=== PATIENT | male | born 1975 | race Caucasian/White ===

== ENCOUNTER 2025-01-16 11:48 | Emergency (ER) | payer OTHER ==
[~2025-01-16] VITALS: Ht 180.3 cm; Wt 95.2 kg
[2025-01-16 14:13] LABS: BASOPHILS ABSOLUTE AUTO 0.03 K/mm3 (0.00-0.23); BASOPHILS PERCENT AUTO 1 % (0-2); EOSINOPHILS ABSOLUTE AUTO 0.15 K/mm3 (0.00-0.68); EOSINOPHILS PERCENT AUTO 4 % (0-6); Hematocrit 46.6 % (37.0-53.0); Hemoglobin 16.8 g/dL (13.5-17.5); IMMATURE GRAN ABSOLUTE AUTO 0.01 K/mm3 (0.00-0.10); IMMATURE GRAN PERCENT AUTO 0 % (0-1); LYMPHOCYTES ABSOLUTE AUTO 0.93 K/mm3 (0.84-5.20); LYMPHOCYTES PERCENT AUTO 22 % (21-46); MONOCYTES ABSOLUTE AUTO 0.28 K/mm3 (0.16-1.47); MONOCYTES PERCENT AUTO 7 % (4-13); Mean Corpuscular HGB 31.1 pg (26.0-34.0); Mean Corpuscular HGB Conc 36.1 g/dL (31.5-36.5); Mean Corpuscular Volume 86 fL (80-100); Mean Platelet Volume 9.7 fL (9.1-12.4); NEUTROPHILS ABSOLUTE AUTO 2.83 K/mm3 (1.96-9.15); NEUTROPHILS PERCENT AUTO 67 % (41-73); Platelet Count 224 K/mm3 (150-400); RDW Coefficient Variation 12.1 % (11.7-14.2); RDW Standard Deviation 38.3 fL (35.1-46.3); White Blood Cell Count 4.23 K/mm3 (4.00-11.30)
[2025-01-16 14:33] LABS: Albumin, Blood 4.8 g/dL (3.4-5.0); Albumin/Globulin Ratio 1.6 (0.8-1.8); Bun/Creatinine Ratio 11.4 (12.0-20.0); Calcium, Blood 9.2 mg/dL (8.5-10.1); Creatinine, Blood 0.97 mg/dL (0.60-1.20); Total Protein, Blood 7.8 g/dL (6.4-8.2)
[2025-01-16 17:03] LABS: International Normalized Ratio 1.02; Prothrombin Time Results 10.9 Sec (9.7-11.5)
[2025-01-16 18:20] VITALS: BP 103/68
[2025-01-16] MEDS ORDERED: Clopidogrel Bisulfate 75 MG Tab PO ONE (19:40)
[2025-01-16] MEDS ORDERED: Aspirin 325 MG Tab PO ONE (19:40)
[2025-01-16] MEDS ORDERED: CLOP75 PO (19:41)
[2025-01-16] MEDS ORDERED: ASPI81CH PO (19:41)
== END 2025-01-16 19:55 | disposition home or self-care (01) ==
LOC: ER 11:48
PROVIDERS: Student in an Organized Health Care Education/Training Program
DX: G45.9 Transient cerebral ischemic attack, unspecified (principal)
CPT/HCPCS: 70450; 70498; 70551; 80053; 85025; 85610; 93005; 93010; 99284-25; A9270; Q9967